=== PATIENT | female | born 1955 | race African-American/Black ===

== ENCOUNTER 2022-11-24 14:12 | Emergency (ER) | payer SELFPAY ==
[2022-11-24 14:29] VITALS: BP 134/65; PULSE 66; RESP 16; TEMP 98; BMI 32.3
[2022-11-24] MEDS ORDERED: ACETAMINOPHEN 325 MG TABLET (FP) PO ONE (15:30)
[2022-11-24] MEDS ORDERED: ACETAMINOPHEN 500 MG TABLET (FP) ONE (15:31)
[2022-11-24] MEDS ORDERED: LIDOCAINE 5% TOPICAL PATCH TP ONE (20:07)
[2022-11-24] MEDS ORDERED: LIDOCAINE 5% TOPICAL PATCH ONE (20:11)
== END 2022-11-24 20:15 | disposition home or self-care (01) ==
LOC: JER 14:12
DX: R51.9 Headache, unspecified (principal); M54.2 Cervicalgia; R11.0 Nausea; W22.8XXA Striking against or struck by other objects, initial encounter
CPT/HCPCS: 70450-TC; 72125-TC; 99284-25